=== PATIENT | male | born 1975 | race Caucasian/White ===

== ENCOUNTER 2020-07-08 09:50 | Emergency (ER) | payer MEDICARE, MEDICAID ==
[~2020-07-08] VITALS: Ht 177.8 cm; Wt 113.4 kg
--- OUTSIDE RECORDS SUMMARY | 2020-07-08 09:52 | XMS ---
PreManage Notification: MALU TRACY Security Rivet Sorter Events No recent Security Events currently on file CRITERIA MET - [facility] - Has Care Guidelines - PDMP CARE PROVIDERS Adrienne Lopez Nurse Practitioner: Family Current MANAGER FOOD PHONE: [phone] Guidelines Source: [facility] Brothers Guidelines Date: 08/17/2019 Care Coordination: Currently seeking mental health services through [facility]. Please contact [facility] for any mental health concerns.\T\nbsp; Margaret [phone] [place] [phone] Crisis Line [phone] Care History Substance Use/Overdose 02/20/2016 [facility]. Client is also seeing[facility]. Jimenez in [place] for detox treatment. If client comes into the ER please contact Heidi Bear [phone] to discuss the current treatment plan in place for client, before any treatment is provided. Medical/Surgical 03/01/2016 [facility] This patient has had visits exceeding 5 visits in the last 12 months. As such the following protocols are recommended - Call [facility]. - Patient has foul language but if asked to not use it he can refrain. - Patient has admitted to using heroin and methamphetamines. Patient was going to participate in in patient drug treatment and cancelled at the last minute. - Patient can be violent if provoked. As always ED provider please use your own professional judgment for treatment to be administered Please provide education the patient on the scope and purpose of the ED as an acute care provider not a Primary Care Provider and should not be utilized for chronic conditions. Lili [phone] [facility] VISIT COUNT (12 MO.) 1 ADOLFO Balbuena TOTAL 1 NOTE: Visits indicate total known visits. ED/UCC VISIT TRACKING (12 MO.) 07/08/2020 09:50 ADOLFO Moe [place] TYPE: Emergency COMPLAINT: - SUICIDE ATTEMPT INPATIENT VISIT TRACKING (12 MO.) No inpatient visits to display in this time frame [email or web address]
[2020-07-08] MEDS ORDERED: ZYPREXA20 MG (10:07)
[2020-07-08] MEDS ORDERED: CHANTIX0.5 MG PO (12:27)
[2020-07-08] MEDS ORDERED: FLUOXETINE HCL40 MG PO (12:28)
[2020-07-08] MEDS ORDERED: OMEPRAZOLE20 MG PO (12:28)
[2020-07-08] MEDS ORDERED: STRATTERA25 MG PO (12:29)
[2020-07-08] MEDS ORDERED: IBU800 MG PO (12:29)
[2020-07-08] MEDS ORDERED: OLANZAPINE20 MG PO (12:30)
[2020-07-08] MEDS ORDERED: FLUOXETINE HCL20 M1 PO (12:31)
== END 2020-07-08 12:17 | disposition home or self-care (01) ==
LOC: ED 09:50
DX: T58.92XA Toxic effect of carbon monoxide from unspecified source, intentional self-harm, initial encounter (principal); F11.20 Opioid dependence, uncomplicated; Z79.899 Other long term (current) drug therapy
CPT/HCPCS: 80053; 80176; 81001; 82375; 84443; 85025; 99285